=== PATIENT | female | born 1965 | race Caucasian/White ===

== ENCOUNTER 2018-09-01 06:54 | Day surgery (SDC) | payer BC ==
[~2018-09-01 06:54] MED LIST: Buffered Lidocaine 1% SYRIN* 1 ML/SYRINGE INTRADERM ONE; Lactated Ringers 1000 ML Bag* 1,000 ML IV SCH
[2018-09-01] MEDS ORDERED: Propofol* 10 MG/ML 20 ML BTL ONE (09:12)
[2018-09-01] MEDS ORDERED: fentaNYL* 50 MCG/ML 2 ML VIAL (100 MCG VIAL) ONE (09:13)
[2018-09-01] MEDS ORDERED: Midazolam* 1 MG/ML 5 ML VIAL (5 MG) ONE (09:13)
[2018-09-01] MEDS ORDERED: Dexamethasone IV* 4 MG/ML 1 ML (4 MG) ONE (09:34)
[2018-09-01] MEDS ORDERED: oxyCODONE/Acetamin 5/325 MG* TAB PO PRN (09:50)
[2018-09-01] MEDS ORDERED: Naloxone* 0.4 MG/ML 1 ML VIAL IV PRN (09:50)
[2018-09-01] MEDS ORDERED: Ondansetron INJ* 2 MG/ML VIAL IV PRN (09:50)
[2018-09-01] MEDS ORDERED: fentaNYL* 50 MCG/ML 2 ML VIAL (100 MCG VIAL) IV PRN (09:50)
[2018-09-01] MEDS ORDERED: DiMENhydriNATE IV* 50 MG/ML VIAL IV PUSH PRN (09:50)
[2018-09-01] MEDS ORDERED: Ondansetron INJ* 2 MG/ML VIAL ONE (09:51)
[2018-09-01] MEDS ORDERED: Ketorolac INJ* 30 MG/ML 1 ML VIAL ONE (09:51)
[2018-09-01 11:11] VITALS: BP 125/75
--- NOTE | 2018-09-01 11:15 | OP ---
CC: [facility] OPERATIVE REPORT: DATE OF OPERATION: DATE OF : 69 SURGEON: Car Pineda MD ANESTHESIOLOGIST: Dr. Buchanan. ANESTHESIA: LMA. PRE-OP DIAGNOSES: Abnormal uterine bleeding and thickened endometrium on ultrasound. POST-OP DIAGNOSES: Abnormal uterine bleeding and thickened endometrium on ultrasound. PROCEDURES: Dilation, hysteroscopy, curettage, MyoSure, polypectomy. FINDINGS: Midline uterus, midline normal appearing cervix, uterus sounded to 10, fluffy appearing en dometrium throughout despite the fact that the patient has been taking progesterone, both tubal ostia were visualized. There were small areas that appeared consistent with polyps along the left lateral uterine wall. There was large amount of tissue on endometrial curettage. COMPLICATIONS: None. COUNTS: Sponge, lap and needle count were x2 and the patient was brought to the recovery room awake and in stable condition. DESCRIPTION OF PROCEDURE: The patient was brought to the operating room. Time-out was performed. A fter the patient was prepped and draped in usual sterile fashion in the dorsal lithotomy position, ex am under anesthesia was performed with the above findings noted. The uterus was midline, felt to be approximately 8 weeks size. No adnexal masses were palpated. The weighted speculum was placed in th e vagina, the anterior lip of the cervix was grasped with a single-tooth tenaculum, and the cervix wa s very easily dilated with the graduated Degroot dilators. The MyoSure was introduced with the above f indings noted. The MyoSure LITE polyp remover was used to remove the polypoid appearing tissue along the left lateral wall. Curettage was then performed and the tissue was sent to the pathology depart ment in formalin. The single-tooth tenaculum was removed from the anterior lip of the cervix. [place] lent hemostasis was noted. All instruments were removed from the vagina, and the patient was brought to recovery room awake and in stable condition. [id number]/[facility] #: [id number]
== END 2018-09-01 11:15 | disposition home or self-care (01) ==
LOC: OR 06:54
PROVIDERS: ATTEND Obstetrics & Gynecology
DX: N93.8 Other specified abnormal uterine and vaginal bleeding (principal); N84.0 Polyp of corpus uteri; F41.9 Anxiety disorder, unspecified
CPT/HCPCS: 81025; 88305; J1100; J1885; J2250; J2405; J2704; J3010